=== PATIENT | female | born 1955 | race Caucasian/White ===

== ENCOUNTER 2023-11-08 09:33 | Day surgery (SDC) | payer OTHER ==
[~2023-11-08] VITALS: Ht 167.6 cm; Wt 147.4 kg
[2023-11-08] MEDS ORDERED: fentaNYL citrate 0.05 MG/ML VIAL ONE (11:25)
[2023-11-08] MEDS: fentaNYL citrate 0.05 MG/ML VIAL IVP ONE (11:34)
[2023-11-08] MEDS: LIDOCAINE 2% 100 MG/5 ML UJET TP ONE (11:44)
== END 2023-11-08 13:20 | disposition home or self-care (01) ==
LOC: MOR 09:33 → MMU 09:34 → MOR 13:20
PROVIDERS: ATTEND Internal Medicine Gastroenterology
DX: R19.5 Other fecal abnormalities (principal); K63.5 Polyp of colon; K57.30 Diverticulosis of large intestine without perforation or abscess without bleeding; E78.00 Pure hypercholesterolemia, unspecified; I10 Essential (primary) hypertension; J45.909 Unspecified asthma, uncomplicated; M19.90 Unspecified osteoarthritis, unspecified site; F41.9 Anxiety disorder, unspecified; E03.9 Hypothyroidism, unspecified; Z79.82 Long term (current) use of aspirin; Z90.49 Acquired absence of other specified parts of digestive tract; Z79.890 Hormone replacement therapy; Z79.899 Other long term (current) drug therapy; Z98.890 Other specified postprocedural states
CPT/HCPCS: 45385; 88305; J3010